=== PATIENT | male | born 1935 | race African-American/Black ===

== ENCOUNTER 2018-04-12 14:13 | Inpatient (IN) | payer OTHER ==
[~2018-04-12] VITALS: Ht 193 cm; Wt 70.3 kg
[2018-04-12] MEDS ORDERED: PRED5TAB48 PO (14:32)
[2018-04-12] MEDS ORDERED: ABIR250T PO (14:32)
[2018-04-12] MEDS ORDERED: METF10004 MT (14:32)
[2018-04-12] MEDS ORDERED: BENA1TAB71 MT (14:32)
[2018-04-12] MEDS ORDERED: ATROV INH (14:32)
[2018-04-12] MEDS ORDERED: AMLO-79 MT (14:32)
[2018-04-12] MEDS ORDERED: ALBU90AE INH (14:32)
[2018-04-12 14:59] LABS: BASOPHILS % 0.7 % (0.0-2.0); EOSINOPHILS % 0.6 % (0.0-5.0); HEMATOCRIT. 30.7 % (42.0-52.0); HEMOGLOBIN. 10.1 g/dL (14.0-18.0); LYMPHOCYTES % 8.2 % (20.0-50.0); MEAN CORPUSCULAR HEMOGLOBIN 30.6 pg (28.0-32.0); MEAN CORPUSCULAR VOLUME 92.9 fL (80.0-94.0); MEAN PLATELET VOLUME 7.4 fl (7.4-10.4); MONOCYTES % 7.6 % (2.0-8.0); NEUTROPHILS % 82.9 % (40.0-76.0); PLATELET 120 x1000/uL (130-400); RED BLOOD CELL COUNT 3.31 mill/uL (4.7-6.1); RED CELL DISTRIBUTION WIDTH 16.2 % (11.6-14.6)
[2018-04-12] MEDS ORDERED: ASPIRIN 81MG TABLET PO ONE (15:00)
[2018-04-12] MEDS ORDERED: SODIUM CHLORIDE 0.9% 1000ML BAG (SEPSIS BOLUS) IV ONE (15:00)
[2018-04-12 15:06] LABS: CHLORIDE 94 mEq/L (98-107)
[2018-04-12 15:07] LABS: PROTHROMBIN TIME 10.5 sec (9.4-11.6)
[2018-04-12] MEDS ORDERED: IPRATROPIUM BROMIDE (0.02%) 0.5MG/2.5ML NEB HHN STA (17:16)
[2018-04-12] MEDS ORDERED: ALBUTEROL (0.083%) 2.5MG/3ML NEB HHN STA (17:16)
[2018-04-12] MEDS ORDERED: METHYLPREDNISOLONE SOD SUCC 125 MG/2 ML VIAL IV STA (17:16)
[2018-04-12 18:35] LABS: CLARITY URINE CLEAR (CLEAR); COLOR URINE DARK YELLOW (YELLOW); KETONES URINE TRACE (NEGATIVE); LEUKOCYTE ESTERASE URINE NEGATIVE (NEGATIVE); NITRITE URINE NEGATIVE (NEGATIVE); OCCULT BLOOD URINE NEGATIVE (NEGATIVE); PH URINE 5.5 (4.5-8.0); PROTEIN URINE TRACE (NEGATIVE); SPECIFIC GRAVITY URINE 1.019 (1.005-1.030)
[2018-04-12 20:20] VITALS: BP 100/52
[2018-04-12 20:30] VITALS: BP 100/52
[2018-04-12] MEDS ORDERED: LORAZEPAM 2MG/ML CPJ IV PRN (22:30)
[2018-04-12] MEDS ORDERED: ONDANSETRON HCL 4MG/2ML VIAL IV PRN (22:30)
[2018-04-12] MEDS ORDERED: CLONIDINE 0.1MG TABLET PO PRN (22:30)
[2018-04-12] MEDS ORDERED: IPRATROPIUM/ALBUTEROL 0.5-3(2.5)MG/3ML NEB INH PRN (22:30)
[2018-04-12] MEDS ORDERED: AMLO10TA80 MT (22:40)
[2018-04-12] MEDS ORDERED: DEXT 5%/0.45% NACL 1000ML 1,000 ML IV SCH (23:00)
[2018-04-13] VITALS: BP 100/49
[2018-04-13] MEDS: ENOXAPARIN 40MG/0.4ML SYR SUBCUT SCH ×2 (01:34→21:59)
[2018-04-13 04:00] VITALS: BP 106/54
[2018-04-13] MEDS ORDERED: DEXTROSE 50% WATER 50ML SYRINGE IV PRN (06:45)
[2018-04-13] MEDS: BLOOD SUGAR DIAGNOSTIC STRIP TEST SCH ×4 (06:49→20:50)
[2018-04-13] MEDS: INSULIN LISPRO 100 UNITS/ML SUBCUT SCH ×4 (06:52→20:50)
[2018-04-13 07:08] LABS: CREATINE KINASE MB FRACTION 1.4 ng/mL (0.5-3.6)
[2018-04-13 08:00] VITALS: BP 114/61
[2018-04-13] MEDS ORDERED: BENAZEPRIL 20MG TABLET PO SCH (09:00)
[2018-04-13] MEDS ORDERED: MEDICATION NOT ON FORMULARY EA (Ipratropium Bromide (Atrovent Hfa) 2 PUFF) INH SCH (09:00)
[2018-04-13] MEDS ORDERED: HYDROCHLOROTHIAZIDE 25MG TABLET PO SCH (09:00)
[2018-04-13] MEDS ORDERED: HYDROCHLOROTHIAZIDE MT SCH (09:00)
[2018-04-13] MEDS ORDERED: AMLODIPINE 10MG TABLET PO SCH (09:00)
[2018-04-13] MEDS ORDERED: MEDICATION NOT ON FORMULARY EA (Amlodipine Besylate/Benazepril (Amlodipine-Benazepril 10 MT SCH (09:00)
[2018-04-13] MEDS ORDERED: [UNRECOGNIZED DRUG - OTHER] MT SCH (09:00)
[2018-04-13] MEDS ORDERED: BENAZEPRIL MT SCH (09:00)
[2018-04-13] MEDS: METFORMIN HCL 500MG TABLET PO SCH ×2 (09:08→17:34)
[2018-04-13 11:46] VITALS: BP 107/91
[2018-04-13] MEDS ORDERED: IOHEXOL-350 100 ML BOTTLE ONE ×2 (13:35→14:55)
[2018-04-13 16:00] VITALS: BP 101/56
[2018-04-13 16:00] LABS: CREATINE KINASE MB FRACTION 1.2 ng/mL (0.5-3.6)
[2018-04-13] MEDS: FUROSEMIDE 40MG TABLET PO SCH (17:36)
[2018-04-13 20:00] VITALS: BP_SYST 100; BP_SYST 80; BP_SYST 92; BP_DIAS 46; BP_DIAS 49; BP_DIAS 55
[2018-04-13] MEDS: BUDESONIDE 0.5MG/2ML NEB HHN SCH (20:45)
[2018-04-13] MEDS: IPRATROPIUM/ALBUTEROL 0.5-3(2.5)MG/3ML NEB HHN SCH (20:45)
[2018-04-13 23:20] LABS: *AMPHETAMINES SCREEN URINE NEGATIVE (NEGATIVE); *BARBITURATES SCREEN URINE NEGATIVE (NEGATIVE); *BENZODIAZEPINES SCREEN URINE NEGATIVE (NEGATIVE); *COCAINE SCREEN URINE NEGATIVE (NEGATIVE); METHADONE URINE SCREEN NEGATIVE (NEGATIVE); OPIATES URINE SCREEN NEGATIVE (NEGATIVE)
[2018-04-13 23:21] LABS: CANNABINOID URINE SCREEN NEGATIVE (NEGATIVE); PHENCYCLIDINE URINE SCREEN NEGATIVE (NEGATIVE)
[2018-04-14] VITALS: BP 103/51
[2018-04-14] MEDS: IPRATROPIUM/ALBUTEROL 0.5-3(2.5)MG/3ML NEB HHN SCH ×4 (01:10→20:43)
[2018-04-14 04:00] VITALS: BP 91/51
[2018-04-14] MEDS: BLOOD SUGAR DIAGNOSTIC STRIP TEST SCH ×4 (05:37→20:22)
[2018-04-14] MEDS: INSULIN LISPRO 100 UNITS/ML SUBCUT SCH ×3 (05:37→20:23)
[2018-04-14] MEDS: FUROSEMIDE 40MG TABLET PO SCH (05:57)
[2018-04-14 06:54] LABS: HEMOGLOBIN. 9.1 g/dL (14.0-18.0); MEAN CORPUSCULAR HEMOGLOBIN 31.3 pg (28.0-32.0); MEAN CORPUSCULAR VOLUME 92.9 fL (80.0-94.0); MEAN PLATELET VOLUME 7.1 fl (7.4-10.4); PLATELET 139 x1000/uL (130-400); RED CELL DISTRIBUTION WIDTH 15.8 % (11.6-14.6)
[2018-04-14 07:04] LABS: CHLORIDE 97 mEq/L (98-107)
[2018-04-14 08:00] VITALS: BP 100/55
[2018-04-14] MEDS: METFORMIN HCL 500MG TABLET PO SCH ×2 (08:30→17:05)
[2018-04-14] MEDS: BUDESONIDE 0.5MG/2ML NEB HHN SCH ×2 (08:32→20:43)
[2018-04-14 12:00] VITALS: BP 100/52
[2018-04-14] MEDS ORDERED: IOHEXOL-300 100 ML BOTTLE ONE (14:04)
[2018-04-14 16:00] VITALS: BP 100/54
[2018-04-14 16:39] LABS: PLATELET ESTIMATE NORMAL
[2018-04-14 20:00] VITALS: BP 114/75
[2018-04-14] MEDS: ENOXAPARIN 40MG/0.4ML SYR SUBCUT SCH (22:19)
[2018-04-15] VITALS (7 sets, daily range): BP systolic 100–121; BP diastolic 56–77
[2018-04-15] MEDS: IPRATROPIUM/ALBUTEROL 0.5-3(2.5)MG/3ML NEB HHN SCH ×4 (02:07→20:42)
[2018-04-15] MEDS: BLOOD SUGAR DIAGNOSTIC STRIP TEST SCH ×4 (05:31→21:45)
[2018-04-15] MEDS: INSULIN LISPRO 100 UNITS/ML SUBCUT SCH ×4 (05:32→21:00)
[2018-04-15] MEDS: BUDESONIDE 0.5MG/2ML NEB HHN SCH ×2 (07:51→20:42)
[2018-04-15] MEDS: METFORMIN HCL 500MG TABLET PO SCH ×2 (08:29→17:14)
[2018-04-15] MEDS: FUROSEMIDE 40MG TABLET PO SCH (08:30)
[2018-04-15] MEDS: ABIRATERONE 250 MG PO SCH (10:23)
[2018-04-15] MEDS: CALCIUM CARBONATE 500MG TABLET CHEW PO SCH (17:14)
[2018-04-15] MEDS: ENOXAPARIN 40MG/0.4ML SYR SUBCUT SCH (23:51)
[2018-04-16] VITALS (7 sets, daily range): BP systolic 107–122; BP diastolic 57–69
[2018-04-16] MEDS: IPRATROPIUM/ALBUTEROL 0.5-3(2.5)MG/3ML NEB HHN SCH ×4 (01:21→21:28)
[2018-04-16 06:54] LABS: BASOPHILS % 0.4 % (0.0-2.0); EOSINOPHILS % 1.4 % (0.0-5.0); HEMATOCRIT. 27.1 % (42.0-52.0); HEMOGLOBIN. 9.1 g/dL (14.0-18.0); LYMPHOCYTES % 7.3 % (20.0-50.0); MEAN CORPUSCULAR HEMOGLOBIN 31.1 pg (28.0-32.0); MEAN CORPUSCULAR VOLUME 92.7 fL (80.0-94.0); MEAN PLATELET VOLUME 7.3 fl (7.4-10.4); MONOCYTES % 8.3 % (2.0-8.0); NEUTROPHILS % 82.6 % (40.0-76.0); PLATELET 134 x1000/uL (130-400); RED BLOOD CELL COUNT 2.93 mill/uL (4.7-6.1); RED CELL DISTRIBUTION WIDTH 16.2 % (11.6-14.6)
[2018-04-16] MEDS: BUDESONIDE 0.5MG/2ML NEB HHN SCH ×2 (07:27→21:28)
[2018-04-16] MEDS: INSULIN LISPRO 100 UNITS/ML SUBCUT SCH ×4 (07:40→21:00)
[2018-04-16] MEDS: BLOOD SUGAR DIAGNOSTIC STRIP TEST SCH ×4 (07:44→21:12)
[2018-04-16 08:04] LABS: CHLORIDE 95 mEq/L (98-107)
[2018-04-16 08:11] LABS: PHOSPHORUS 2.9 mg/dL (2.5-4.9)
[2018-04-16] MEDS: FUROSEMIDE 40MG TABLET PO SCH (08:32)
[2018-04-16] MEDS: METFORMIN HCL 500MG TABLET PO SCH ×2 (08:32→16:57)
[2018-04-16] MEDS: CALCIUM CARBONATE 500MG TABLET CHEW PO SCH ×3 (08:36→16:57)
[2018-04-16] MEDS: POTASSIUM CHLORIDE 20MEQ TABLET SR PO SCH (10:43)
[2018-04-16] MEDS: ABIRATERONE 250 MG PO SCH (11:32)
[2018-04-17] MEDS: IPRATROPIUM/ALBUTEROL 0.5-3(2.5)MG/3ML NEB HHN SCH ×4 (01:03→20:45)
[2018-04-17 04:00] VITALS: BP 112/64
[2018-04-17] MEDS: BLOOD SUGAR DIAGNOSTIC STRIP TEST SCH ×4 (06:18→21:00)
[2018-04-17 07:37] LABS: HEMATOCRIT. 27.1 % (42.0-52.0); MEAN CORPUSCULAR HEMOGLOBIN 30.5 pg (28.0-32.0); MEAN CORPUSCULAR VOLUME 91.3 fL (80.0-94.0); MEAN PLATELET VOLUME 7.1 fl (7.4-10.4); PLATELET 154 x1000/uL (130-400); RED BLOOD CELL COUNT 2.96 mill/uL (4.7-6.1); RED CELL DISTRIBUTION WIDTH 16.4 % (11.6-14.6)
[2018-04-17] MEDS: INSULIN LISPRO 100 UNITS/ML SUBCUT SCH ×5 (07:40→21:00)
[2018-04-17] MEDS: METFORMIN HCL 500MG TABLET PO SCH ×2 (07:40→17:57)
[2018-04-17 08:00] VITALS: BP 103/56
[2018-04-17 09:04] LABS: CHLORIDE 96 mEq/L (98-107)
[2018-04-17 09:31] LABS: PLATELET ESTIMATE NORMAL
[2018-04-17] MEDS: CALCIUM CARBONATE 500MG TABLET CHEW PO SCH ×3 (09:40→17:57)
[2018-04-17] MEDS: POTASSIUM CHLORIDE 20MEQ TABLET SR PO SCH ×2 (09:40→17:08)
[2018-04-17 12:00] VITALS: BP 106/58
[2018-04-17] MEDS: ABIRATERONE 250 MG PO SCH (12:02)
[2018-04-17 16:00] VITALS: BP 116/67
[2018-04-17] MEDS: ACETAMINOPHEN 650MG/20.3ML UDC GT PRN (23:35)
[2018-04-18] VITALS (7 sets, daily range): BP systolic 106–145; BP diastolic 58–76
[2018-04-18] MEDS: IPRATROPIUM/ALBUTEROL 0.5-3(2.5)MG/3ML NEB HHN SCH ×4 (00:58→21:09)
[2018-04-18] MEDS: INSULIN LISPRO 100 UNITS/ML SUBCUT SCH ×4 (06:04→20:07)
[2018-04-18] MEDS: BLOOD SUGAR DIAGNOSTIC STRIP TEST SCH ×4 (06:04→20:06)
[2018-04-18] MEDS: METFORMIN HCL 500MG TABLET PO SCH ×2 (08:11→17:28)
[2018-04-18] MEDS: POTASSIUM CHLORIDE 20MEQ TABLET SR PO SCH ×2 (08:12→17:35)
[2018-04-18] MEDS: CALCIUM CARBONATE 500MG TABLET CHEW PO SCH ×3 (08:12→18:43)
[2018-04-18] MEDS: ABIRATERONE 250 MG PO SCH (11:01)
[2018-04-19] VITALS: BP 116/63
[2018-04-19] MEDS: IPRATROPIUM/ALBUTEROL 0.5-3(2.5)MG/3ML NEB HHN SCH ×4 (02:33→22:31)
[2018-04-19 04:00] VITALS: BP 109/65
[2018-04-19] MEDS: BLOOD SUGAR DIAGNOSTIC STRIP TEST SCH ×4 (06:37→21:17)
[2018-04-19] MEDS: INSULIN LISPRO 100 UNITS/ML SUBCUT SCH ×4 (06:37→21:23)
[2018-04-19] MEDS: CALCIUM CARBONATE 500MG TABLET CHEW PO SCH ×3 (08:25→17:40)
[2018-04-19] MEDS: METFORMIN HCL 500MG TABLET PO SCH ×2 (08:25→17:01)
[2018-04-19] MEDS: POTASSIUM CHLORIDE 20MEQ TABLET SR PO SCH ×2 (08:25→17:01)
[2018-04-19 08:35] VITALS: BP 124/76
[2018-04-19] MEDS: ABIRATERONE 250 MG PO SCH (10:45)
[2018-04-19 12:00] VITALS: BP 127/63
[2018-04-19 16:10] VITALS: BP 125/83
[2018-04-19 20:00] VITALS: BP 128/82
[2018-04-20] VITALS: BP 120/67
[2018-04-20] MEDS: IPRATROPIUM/ALBUTEROL 0.5-3(2.5)MG/3ML NEB HHN SCH ×4 (03:23→20:20)
[2018-04-20 04:07] VITALS: BP 141/72
[2018-04-20] MEDS: BLOOD SUGAR DIAGNOSTIC STRIP TEST SCH ×4 (06:37→21:13)
[2018-04-20] MEDS: INSULIN LISPRO 100 UNITS/ML SUBCUT SCH ×4 (06:46→21:11)
[2018-04-20 07:49] LABS: CHLORIDE 100 mEq/L (98-107)
[2018-04-20 08:00] VITALS: BP 121/70
[2018-04-20 08:01] LABS: HEMATOCRIT. 28.1 % (42.0-52.0); HEMOGLOBIN. 9.1 g/dL (14.0-18.0); MEAN CORPUSCULAR HEMOGLOBIN 29.4 pg (28.0-32.0); MEAN CORPUSCULAR VOLUME 90.7 fL (80.0-94.0); MEAN PLATELET VOLUME 7.2 fl (7.4-10.4); PLATELET 212 x1000/uL (130-400); RED CELL DISTRIBUTION WIDTH 16.2 % (11.6-14.6)
[2018-04-20] MEDS: METFORMIN HCL 500MG TABLET PO SCH ×2 (08:26→17:02)
[2018-04-20] MEDS: CALCIUM CARBONATE 500MG TABLET CHEW PO SCH ×3 (08:26→17:02)
[2018-04-20] MEDS: POTASSIUM CHLORIDE 20MEQ TABLET SR PO SCH (08:26)
[2018-04-20] MEDS: ABIRATERONE 250 MG PO SCH (10:41)
[2018-04-20 12:00] VITALS: BP 125/74
[2018-04-20 12:50] LABS: PLATELET ESTIMATE NORMAL
[2018-04-20 16:00] VITALS: BP 125/76
[2018-04-20] MEDS: DEXT 5%/0.9% NACL 1,000 ML IV SCH (17:01)
[2018-04-20] MEDS: METHYLPREDNISOLONE SOD SUCC 40 MG/ML VIAL IV SCH (17:01)
[2018-04-20 20:00] VITALS: BP 100/73
[2018-04-21] VITALS: BP 129/75
[2018-04-21] MEDS: IPRATROPIUM/ALBUTEROL 0.5-3(2.5)MG/3ML NEB HHN SCH ×4 (02:01→20:08)
[2018-04-21 04:00] VITALS: BP 121/74
[2018-04-21] MEDS: METHYLPREDNISOLONE SOD SUCC 40 MG/ML VIAL IV SCH ×3 (04:14→18:26)
[2018-04-21] MEDS: BLOOD SUGAR DIAGNOSTIC STRIP TEST SCH ×4 (06:06→21:35)
[2018-04-21] MEDS: INSULIN LISPRO 100 UNITS/ML SUBCUT SCH ×4 (06:33→21:37)
[2018-04-21] MEDS: METFORMIN HCL 500MG TABLET PO SCH ×2 (07:48→17:40)
[2018-04-21] MEDS: CALCIUM CARBONATE 500MG TABLET CHEW PO SCH ×3 (07:48→17:40)
[2018-04-21 08:00] VITALS: BP 137/78
[2018-04-21 12:00] VITALS: BP 133/78
[2018-04-21] MEDS: ABIRATERONE 250 MG PO SCH (12:08)
[2018-04-21] MEDS: BUDESONIDE 0.5MG/2ML NEB HHN SCH ×2 (12:55→20:09)
[2018-04-21 16:00] VITALS: BP 132/78
[2018-04-21] MEDS: DEXT 5%/0.9% NACL 1,000 ML IV SCH (18:33)
[2018-04-21 20:00] VITALS: BP 122/69
[2018-04-22] VITALS: BP 120/72
[2018-04-22] MEDS: IPRATROPIUM/ALBUTEROL 0.5-3(2.5)MG/3ML NEB HHN SCH ×4 (01:47→21:06)
[2018-04-22] MEDS: METHYLPREDNISOLONE SOD SUCC 40 MG/ML VIAL IV SCH ×3 (03:21→18:11)
[2018-04-22 04:00] VITALS: BP 122/69
[2018-04-22 06:31] LABS: HEMATOCRIT. 25.1 % (42.0-52.0); HEMOGLOBIN. 8.2 g/dL (14.0-18.0); MEAN CORPUSCULAR HEMOGLOBIN 29.8 pg (28.0-32.0); MEAN CORPUSCULAR VOLUME 90.9 fL (80.0-94.0); MEAN PLATELET VOLUME 7.6 fl (7.4-10.4); PLATELET 235 x1000/uL (130-400); RED BLOOD CELL COUNT 2.76 mill/uL (4.7-6.1); RED CELL DISTRIBUTION WIDTH 16.4 % (11.6-14.6)
[2018-04-22] MEDS: INSULIN LISPRO 100 UNITS/ML SUBCUT SCH ×4 (06:33→20:24)
[2018-04-22] MEDS: BLOOD SUGAR DIAGNOSTIC STRIP TEST SCH ×4 (06:34→20:24)
[2018-04-22 07:41] LABS: PHOSPHORUS 2.9 mg/dL (2.5-4.9)
[2018-04-22 08:12] VITALS: BP 134/73
[2018-04-22] MEDS: BUDESONIDE 0.5MG/2ML NEB HHN SCH ×2 (08:26→21:09)
[2018-04-22] MEDS: CALCIUM CARBONATE 500MG TABLET CHEW PO SCH ×3 (08:45→18:03)
[2018-04-22] MEDS: METFORMIN HCL 500MG TABLET PO SCH ×2 (08:45→18:03)
[2018-04-22 10:35] LABS: PLATELET ESTIMATE NORMAL
[2018-04-22] MEDS: ABIRATERONE 250 MG PO SCH (11:11)
[2018-04-22 11:58] VITALS: BP 132/74
[2018-04-22 16:18] VITALS: BP 122/78
[2018-04-22] MEDS: DEXT 5%/0.9% NACL 1,000 ML IV SCH (18:05)
[2018-04-22 20:00] VITALS: BP 117/65
[2018-04-23] VITALS (37 sets, daily range): BP systolic 68–114; BP diastolic 39–71
[2018-04-23] MEDS: IPRATROPIUM/ALBUTEROL 0.5-3(2.5)MG/3ML NEB HHN SCH ×3 (01:01→15:25)
[2018-04-23] MEDS: METHYLPREDNISOLONE SOD SUCC 40 MG/ML VIAL IV SCH ×2 (02:44→10:07)
[2018-04-23] MEDS: BLOOD SUGAR DIAGNOSTIC STRIP TEST SCH ×3 (06:55→16:28)
[2018-04-23 07:19] LABS: BG CARBOXYHEMOGLOBIN 1.6 % (0.5-1.5); BG DEOXYHEMOGLOBIN 7.1 % (0.0-5.0); BG FRACTION INSPIRED OXYGEN 100; BG HCO3 ACT 15.2 mmol/L (22.0-26.0); BG METHEMOGLOBIN 0.6 % (0.0-1.5); BG OXYGEN SATURATION 92.7 % (92.0-98.5); BG OXYHEMOGLOBIN 90.7 % (94.0-97.0); BG PCO2 40.8 mmHg (35.0-45.0); BG PH 7.188 (7.350-7.450); BG SAMPLE SITE RIGHT BRACHIAL; BG TOTAL HEMOGLOBIN 5.8 g/dL (12.0-18.0); BG VENT MODE MASK - NRB
[2018-04-23] MEDS: CALCIUM CARBONATE 500MG TABLET CHEW PO SCH ×3 (07:40→16:29)
[2018-04-23] MEDS ORDERED: NOREPINEPHRINE 4 MG in DEXT 5% WATER 246 ML IV PRN (08:00)
[2018-04-23] MEDS ORDERED: PROPOFOL 10MG/ML 100ML 100 ML IV PRN (08:15)
[2018-04-23] MEDS: BUDESONIDE 0.5MG/2ML NEB HHN SCH (08:22)
[2018-04-23 08:47] LABS: BG BASE EXCESS -8.1 mmol/L (-2.0-2.0); BG CARBOXYHEMOGLOBIN 1.9 % (0.5-1.5); BG DEOXYHEMOGLOBIN 0.4 % (0.0-5.0); BG FRACTION INSPIRED OXYGEN 100; BG METHEMOGLOBIN 0.9 % (0.0-1.5); BG OXYGEN SATURATION 99.6 % (92.0-98.5); BG OXYHEMOGLOBIN 96.8 % (94.0-97.0); BG PCO2 48.6 mmHg (35.0-45.0); BG PO2 292.7 mmHg (75.0-100.0); BG SAMPLE SITE RIGHT RADIAL; BG TIDAL VOLUME(mL) 550 mL; BG TOTAL HEMOGLOBIN 5.6 g/dL (12.0-18.0); BG VENT MODE VENT - A/C; BG VENT RATE 14 set
[2018-04-23] MEDS ORDERED: SODIUM BICARBONATE 8.4% 1 MEQ/ML 50ML SYR IV SCH (09:00)
[2018-04-23 09:04] LABS: CHLORIDE 110 mEq/L (98-107)
[2018-04-23 09:09] LABS: PHOSPHORUS 4.1 mg/dL (2.5-4.9)
[2018-04-23] MEDS: METFORMIN HCL 500MG TABLET PO SCH ×2 (10:08→16:28)
[2018-04-23] MEDS ORDERED: LIDOCAINE HCL 1% 20ML VIAL (Pyxis) INJ ONE (10:22)
[2018-04-23] MEDS ORDERED: SODIUM POLYSTYRENE SULFONATE 15 G/60 ML BOT PO NR ×2 (10:30→16:00)
[2018-04-23] MEDS: ABIRATERONE 250 MG PO SCH (11:14)
[2018-04-23] MEDS ORDERED: PIPERACILLIN/TAZ 2.25G PREMIX 50 ML IV SCH (11:30)
[2018-04-23] MEDS ORDERED: NOREPINEPHRINE 8 MG in DEXT 5% WATER 246 ML IV PRN (12:14)
[2018-04-23] MEDS ORDERED: NOREPINEPHRINE 8 MG in DEXT 5% WATER 242 ML IV PRN (12:30)
[2018-04-23] MEDS ORDERED: NOREPINEPHRINE 8MG in DEXT 5% WATER 250ML (DOUBLE CONC) IV PRN (12:30)
[2018-04-23] MEDS: ACETAMINOPHEN 650MG/20.3ML UDC GT PRN (12:30)
[2018-04-23] MEDS: INSULIN LISPRO 100 UNITS/ML SUBCUT SCH (12:58)
[2018-04-23] MEDS ORDERED: PANTOPRAZOLE SODIUM 40 MG/VIAL IV NR (13:00)
[2018-04-23] MEDS ORDERED: VANCOMYCIN 1500MG in DEXTROSE 5% WATER 250ML IV SCH (13:00)
[2018-04-23] MEDS ORDERED: ETOMIDATE 2MG/ML 10ML VIAL IV ONE (13:59)
[2018-04-23] MEDS ORDERED: PIPERACILLIN/TAZ 3.375G PREMIX 50 ML IV SCH (14:00)
[2018-04-23 15:30] LABS: PHOSPHORUS 4.7 mg/dL (2.5-4.9)
[2018-04-23 17:27] LABS: CLARITY URINE CLOUDY (CLEAR); COLOR URINE YELLOW (YELLOW); KETONES URINE NEGATIVE (NEGATIVE); LEUKOCYTE ESTERASE URINE NEGATIVE (NEGATIVE); NITRITE URINE NEGATIVE (NEGATIVE); OCCULT BLOOD URINE NEGATIVE (NEGATIVE); PROTEIN URINE NEGATIVE (NEGATIVE); SPECIFIC GRAVITY URINE 1.015 (1.005-1.030); UROBILINOGEN URINE 0.2 E.U./dL (0.2-1.0)
[2018-04-23] MEDS ORDERED: METHYLPREDNISOLONE SOD SUCC 40 MG/ML VIAL IV SCH (21:00)
[2018-04-24] MEDS ORDERED: VANCOMYCIN 1 G PREMIX 200 ML IV SCH (06:00)
[2018-04-24] MEDS ORDERED: PANTOPRAZOLE SODIUM 40 MG/VIAL IV SCH (09:00)
== END 2018-04-23 17:46 | disposition expired | DRG 208 ==
LOC: ER 15:25 → 8WST 17:15 → ENRESERV 17:30 → MICUSO 04-23 07:41
PROVIDERS: ADMIT Psychiatry & Neurology Neurology; ATTEND Psychiatry & Neurology Neurology
PROC: 0BH17EZ Insertion of Endotracheal Airway into Trachea, Via Natural or Artificial Opening (ICD-10-PCS; principal; 2018-04-23)
PROC: 5A1935Z Respiratory Ventilation, Less than 24 Consecutive Hours (ICD-10-PCS; 2018-04-23)
PROC: 05HY33Z Insertion of Infusion Device into Upper Vein, Percutaneous Approach (ICD-10-PCS; 2018-04-23)
PROC: B54MZZA Ultrasonography of Right Upper Extremity Veins, Guidance (ICD-10-PCS; 2018-04-23)
DX: J96.00 Acute respiratory failure, unspecified whether with hypoxia or hypercapnia (principal); G93.40 Encephalopathy, unspecified; E43 Unspecified severe protein-calorie malnutrition; I50.33 Acute on chronic diastolic (congestive) heart failure; E87.1 Hypo-osmolality and hyponatremia; J44.1 Chronic obstructive pulmonary disease with (acute) exacerbation; C34.90 Malignant neoplasm of unspecified part of unspecified bronchus or lung; Z68.1 Body mass index [BMI] 19.9 or less, adult; E87.2 Acidosis; Z66 Do not resuscitate; I11.0 Hypertensive heart disease with heart failure; N28.1 Cyst of kidney, acquired; R79.89 Other specified abnormal findings of blood chemistry; R91.8 Other nonspecific abnormal finding of lung field; D63.8 Anemia in other chronic diseases classified elsewhere; F17.200 Nicotine dependence, unspecified, uncomplicated; E11.9 Type 2 diabetes mellitus without complications; K56.41 Fecal impaction; E87.6 Hypokalemia; E87.5 Hyperkalemia; R13.10 Dysphagia, unspecified; E78.5 Hyperlipidemia, unspecified; E87.8 Other disorders of electrolyte and fluid balance, not elsewhere classified; Z90.79 Acquired absence of other genital organ(s); Z85.46 Personal history of malignant neoplasm of prostate; Z90.2 Acquired absence of lung [part of]; Z87.01 Personal history of pneumonia (recurrent); Z79.899 Other long term (current) drug therapy
CPT/HCPCS: 36415; 36569; 36600; 70490; 71045; 71275; 74178; 76937; 80048; 80053; 80305; 81003; 82375; 82550; 82553; 82805; 82962; 83605; 83735; 83880; 84100; 84484; 85025; 85610; 87040; 87070; 87077; 87086; 87186; 92610; 93005; 93308; 93970; 94640; 94644; 96361; 96374; 97116; 97162; 97166; 97530; 97535; 99285; C1725; C1769; C9113; J1650; J1815; J2405; J2543; J2704; J2920; J2930; J3370; J3490; J7030; J7040; J7042; J7060; J7611; J7620; J7626; Q9967